=== PATIENT | female | born 1975 | race African-American/Black ===

== ENCOUNTER 2023-02-22 08:00 | Outpatient (CLI) | payer MEDICAID ==
[~2023-02-22] VITALS: Ht 167.6 cm; Wt 75.3 kg
== END 2023-02-22 15:00 | disposition home or self-care (01) ==
LOC: SLB 08:00 → EDSTATUS 02-28 07:30
PROVIDERS: ATTEND Obstetrics & Gynecology
DX: Z01.812 Encounter for preprocedural laboratory examination (principal); D25.1 Intramural leiomyoma of uterus
CPT/HCPCS: 87081

== ENCOUNTER 2023-04-06 05:30 | Inpatient (IN) | payer MEDICAID ==
[~2023-04-06] VITALS: Ht 167.6 cm; Wt 75.3 kg
[2023-04-06] MEDS ORDERED: BUPIVACAINE LIPOSOME/PF 266 MG/20 ML VIAL INFIL ONE (07:13)
[2023-04-06] MEDS ORDERED: LR 1,000 ML IV.SOLN IV ONE (07:31)
[2023-04-06] MEDS ORDERED: SUGAMMADEX SODIUM 200 MG/2 ML VIAL IV ONE (07:31)
[2023-04-06] MEDS ORDERED: HYDROMORPHONE HCL IN 0.9% NACL 0.2 MG/ML DRIP IV ONE (07:31)
[2023-04-06] MEDS ORDERED: METOCLOPRAMIDE HCL 10 MG/10 ML UDC ONE (07:31)
[2023-04-06] MEDS ORDERED: fentaNYL CITRATE/PF 100 MCG/2 ML AMP ONE (07:31)
[2023-04-06] MEDS ORDERED: KETOROLAC TROMETHAMINE 30 MG VIAL ONE (07:31)
[2023-04-06] MEDS ORDERED: ROCURONIUM BROMIDE 10 MG/ML (ZEMURON) ONE (07:31)
[2023-04-06] MEDS ORDERED: MIDAZOLAM HCL/PF 2 MG/2 ML SYRINGE ONE (07:31)
[2023-04-06] MEDS ORDERED: ONDANSETRON HCL 4 MG/2 ML VIAL ONE (07:31)
[2023-04-06] MEDS ORDERED: ISOFLURANE 15 MIN GAS INH ONE (07:31)
[2023-04-06] MEDS ORDERED: PROPOFOL 200MG/ 20ML VIAL (DIPRIVAN) IV ONE (07:31)
[2023-04-06] MEDS ORDERED: BUPIVACAINE /PF 0.25% 30 ML VIAL INJ ONE (07:31)
[2023-04-06] MEDS ORDERED: HYDROmorphone 2 MG/ML VIAL IVP PRN ×2 (07:45→08:00)
[2023-04-06] MEDS ORDERED: OXYCODONE/ACETAMINOPHEN 5-325 TABLET PO PRN (07:45)
[2023-04-06] MEDS ORDERED: BISACODYL 10 MG/SUPPOSITORY RC PRN (07:45)
[2023-04-06] MEDS ORDERED: IBUPROFEN 800 MG TABLET PO PRN (07:45)
[2023-04-06] MEDS ORDERED: KETOROLAC TROMETHAMINE 30 MG VIAL IVP PRN (07:45)
[2023-04-06] MEDS ORDERED: SIMETHICONE 80 MG TAB.CHEW PO PRN (07:45)
[2023-04-06] MEDS ORDERED: HYDROmorphone 1 MG/ML INJ. CARTRIDGE IVP PRN ×2 (08:00)
[2023-04-06] MEDS ORDERED: NALOXONE HCL 0.4 MG/ML AMP (NARCAN) IVP PRN ×2 (08:00)
[2023-04-06] MEDS ORDERED: ONDANSETRON HCL 4 MG/2 ML VIAL IVP PRN ×2 (08:00→16:30)
[2023-04-06] MEDS ORDERED: HYDROmorphone 1 MG/ML INJ. CARTRIDGE ONE (09:20)
[2023-04-06 10:30] VITALS: BP_SYST 141; PULSE 67; RESP 18; TEMP 97.1; O2SAT 100
--- NOTE | 2023-04-06 10:50 | NUR ---
ADMISSION NOTE Received patient from OR, alert and verbally responsive.Patient admitted with diagnosis of supracervical hysterectomy. Vital signs taken,Patient is awake, alert, oriented x 4.Patient oriented to hospital room, toileting, pain management and safety-teach back done. Bed alarm is on,side rails up for safety. Hob elevated 30 degrees for comfort. Adkins catheter in place draining yellow urine. Patient encouraged to use the call light anytime she need help or need the nurse. Personal belongings and Call light within reach.
[2023-04-06 11:00] VITALS: BP_SYST 141; PULSE 66; RESP 16; TEMP 97; O2SAT 98
[2023-04-06] MEDS ORDERED: ASCO500T20 PO (12:08)
[2023-04-06] MEDS ORDERED: VITD2000 PO (12:08)
[2023-04-06] MEDS ORDERED: CALC200T47 PO (12:08)
[2023-04-06] MEDS ORDERED: FERR236T3 PO (12:08)
[2023-04-06] MEDS ORDERED: HYDR12.585 PO (12:08)
[2023-04-06] MEDS ORDERED: [UNRECOGNIZED DRUG - CODE] PO (12:10)
[2023-04-06] MEDS ORDERED: OMEG10006 PO (12:10)
[2023-04-06] MEDS ORDERED: ELDE350C PO (12:10)
[2023-04-06] MEDS: DOCUSATE SODIUM 100 MG CAPSULE PO SCH ×2 (12:29→21:18)
[2023-04-06] MEDS: LR 1,000 ML IV SCH ×3 (12:34→21:19)
[2023-04-06 16:00] VITALS: BP_SYST 152; PULSE 70; RESP 18; TEMP 97; O2SAT 99
--- NOTE | 2023-04-06 16:23 | NUR ---
OB GYNE PAGED: SPOKE WTIH DR BASS FOR RE:PATIENT C/O NAUSEA/VOMITING. WITH ORDERS GIVE ZOFRAN 4MG IVP EVERY 4HRS NEEDED.
--- NOTE | 2023-04-06 16:40 | NUR ---
ROUNDING NOTES Pt complained of nausea and vomiting. Notified MD, New order to give Zofran IV noted and carried out. Medication effective. Notified MD to reconcile pt home medication. MD stated pt is still here today and not going home yet. Fall precaution maintained. Call light in reach.
--- NOTE | 2023-04-06 18:47 | NUR ---
CLOSING NOTES Pt. resting comfortable in bed, no complain of nausea at this time. IV on the right hand in place, no redness or swelling noted. Adkins catheter in place draining clear yellow urine. Out put [id number] ml. Fall precaution maintained. Bed alarm on, side rails up for safety.call light within reach.
--- NOTE | 2023-04-06 20:00 | NUR ---
OPENING NOTES PATIENT IS LYING IN BED AXIO 4 WITH NO S/S OF DISTRESS OR DISCOMFORT. BREATHING IS EQUAL AND UNLABORED ON RA.VSS. IVF RUNNING. CATHETER IN PLACE DRAINING YELLOW URINE. BED AT LOWEST POSITION AND LOCKED. BED ALARM ON AND CALL LIGHT WITH IN REACH. WILL CONTINUE TO MONITOR.
[2023-04-06] MEDS ORDERED: TEMAZEPAM 15 MG CAPSULE PO PRN (21:00)
[2023-04-06 22:21] VITALS: BP_SYST 136; PULSE 80; RESP 16; TEMP 97.5; O2SAT 100
[2023-04-06 23:42] VITALS: O2SAT 100
--- NOTE | 2023-04-07 03:00 | NUR ---
ROUNDS PATIENT IS ASLEEP IN BED WITH NO S/S OF DISCOMFORT. BREATHING IS EQUAL AND UNLABORED ON RA. IVF RUNNING. CATHETER INTACT DRAINING YELLOW URINE. BED IS LOWEST POSITION AND LOCKED. BED ALARM ON AND CALL LIGHT WITH IN REACH,
[2023-04-07] MEDS: LR 1,000 ML IV SCH ×3 (06:21→23:45)
--- NOTE | 2023-04-07 06:36 | NUR ---
CLOSING NOTES PATIENT IS SITTING ON THE SIDE OF THE BED AXO 4 WITH NO S/S/ OF DISTRESS OR DISCOMFORT. BREATHING IS EQUAL AND UNLABORED ON RA. IVF RUNNING. CATHETER INTACT DRAINING WITH YELLOW URINE. PATIENT IS STABLE. ALL NEEDS WERE MET AT THIS TIME. SAFETY CHECKS DONE AND CALL LIGHT WITHIN REACH.
[2023-04-07 06:55] LABS: BASOPHILS # (AUTO) 0.1 K/uL (0.0-0.2); BASOPHILS % (AUTO) 0.7 % (0.0-2.0); EOSINOPHILS # (AUTO) 0.1 K/uL (0.0-0.4); EOSINOPHILS % (AUTO) 0.7 % (0.0-4.0); HEMATOCRIT 30.1 % (36-48); HEMOGLOBIN 9.7 g/dL (12.0-16.0); LYMPHOCYTES # (AUTO) 1.9 K/uL (1.0-5.5); LYMPHOCYTES % (AUTO) 15.3 % (20.5-51.5); MEAN CORPUSCULAR HEMOGLOBIN 29 pg (27-31); MEAN CORPUSCULAR HGB CONC 32 % (32-36); MEAN CORPUSCULAR VOLUME 91 fL (79.0-98.0); MONOCYTES # (AUTO) 0.9 K/uL (0.0-1.0); MONOCYTES % (AUTO) 7.4 % (1.7-9.3); NEUTROPHILS # (AUTO) 9.4 K/uL (1.8-7.7); NEUTROPHILS % (AUTO) 75.9 % (40.0-70.0); PLATELET COUNT (AUTO) 379 K/uL (130-430); RED BLOOD CELL COUNT(AUTO) 3.32 MIL/uL (4.2-6.2); WHITE BLOOD COUNT (AUTO) 12.4 K/uL (4.8-10.8)
[2023-04-07 08:00] VITALS: BP_SYST 155; PULSE 75; RESP 17; TEMP 97.7; O2SAT 100; O2SAT 99
--- NOTE | 2023-04-07 08:00 | NUR ---
Opening note: Patient AOx4. Patient is in bed resting. Patient breathing non labored and even on room air. IVF running as ordered. IV site Patent on RT hand. No signs of infiltration or edema. Patient denies any SOB or acute distress. Patient c/o mild abdominal pain, provided ice packs and will provide pain medication as indicated. Abdominal dressing remains cleaned and dry. Bed locked, set at lowest position, and call light within reach. Will continue to monitor.
[2023-04-07] MEDS: DOCUSATE SODIUM 100 MG CAPSULE PO SCH ×2 (08:48→21:11)
--- NOTE | 2023-04-07 08:55 | NUR ---
Remove escalona As indicated escalona removed. Patient tolerated well and will continue to monitor.
--- NOTE | 2023-04-07 09:35 | NUR ---
NOTES; PT AMBULATED TO BATHROOM AND VOIDED. PT TOLERATED WELL
[2023-04-07 10:55] VITALS: BP_SYST 127; PULSE 80; RESP 18; TEMP 97.2; O2SAT 100
--- NOTE | 2023-04-07 11:05 | NUR ---
NOTES; PT RESTING IN BED COMFORTABLY, IVF RUNNING ORDERED. IV SITE REMAIN INTACT AND PATENT. NO IV RELATED INFECTION NOTED. BED IS LOCKED AND AT LOW POSITION. CALL LIGHT WITHIN REACH. ENCOURAGED PT TO USE CALL LIGHT FOR ANY ASSISTANCE. WILL CONT TO MONITOR
--- NOTE | 2023-04-07 13:30 | NUR ---
NOTES; PT AMBULATED TO BATHROOM AND VOIDED. PT TOLERATED WELL
--- NOTE | 2023-04-07 15:45 | NUR ---
Rounding notes: Checked on patient, resting watching tv. Able to ambulate to void. Denies any pain or SOB. Call light within reach, bed set at lowest position and locked. Educated patient on proper becca care. Will continue to monitor.
[2023-04-07 15:48] VITALS: BP_SYST 125; PULSE 78; RESP 20; TEMP 97; O2SAT 100
--- NOTE | 2023-04-07 19:22 | NUR ---
Closing note: Patient resting in bed watching tv. IV patent, no signs of infiltration or edema. Denies any pain and SOB. Patient ambulating to void and has not had a BM, supp. was administered. Bed locked, set at lowest position, and call light within reach. Will endorse to [facility] shift nurse.
[2023-04-07 20:00] VITALS: BP_SYST 175; PULSE 75; RESP 20; TEMP 97.9; O2SAT 100
--- NOTE | 2023-04-07 20:00 | NUR ---
OPENING NOTES PATIENT IS SITTING ON THE EDGE OF THE BED AXO 4 WITH SEVERE PAIN IN ABDOMEN. PATIENT STATES THAT AFTER SHE ATE HER FOOD HER STOMACH STARTED FEELING PAIN. BREATHING IS EQUAL AND UNLABORED ON RA. IV WAS INFILTRATED, AND EDEMA WAS PRESENT. REMOVED IV FROM PATIENT. ADMINISTERED 2 OXYCODONE FOR SEVERE PAIN. PATIENT HAS BEEN AMBULATING AROUND THE ROOM. PATIENT WAS ABLE TO VOID BUT NO BOWEL MOVEMENT. PATIENT'S ABDOMEN IS FIRM. GAVE STOOL SOFTENER SCHEDULED. EDUCATED PATIENT ON CONTINUING TO AMBULATE WITH MY ASSIST. BED IS AT LOWEST POSITION AND LOCKED. BED ALARM ON AND CALL LIGHT WITH IN REACH. WILL CONTINUE TO MONITOR.
[2023-04-07] MEDS: OXYCODONE/ACETAMINOPHEN 5-325 TABLET PO PRN ×2 (20:29→21:03)
--- NOTE | 2023-04-07 23:33 | NUR ---
NOTES PATIENT HAS BEEN AMBULATING AROUND THE UNIT WITH MY ASSIST. PATIENT STATES PAIN PILL HAS NOT HELPED BUT WALKING AROUND IS EASING THE PAIN. PATIENT STILL HAS NOT HAS A BM OR PASSED GAS.
[2023-04-07 23:44] VITALS: O2SAT 100
[2023-04-08 00:43] VITALS: BP_SYST 150; PULSE 85; RESP 18; TEMP 97.8; O2SAT 100
--- NOTE | 2023-04-08 04:25 | NUR ---
ROUNDS PATIENT IS ASLEEP IN BED WITH NO S/S OF DISTRESS OR DISCOMFORT. BREATHING IS EQUAL AND UNLABORED ON RA. BED IS AT LOWEST POSITION AND LOCKED. BED ALARM ON AND CALL LIGHT WITH IN REACH. WILL CONTINUE TO MONITOR.
--- NOTE | 2023-04-08 06:48 | NUR ---
CLOSING NOTES PATIENT IS SITTING IN BED AXO 4 WITH NO S/S OF DISTRESS OR DISCOMFORT. BREATHING IS EQUAL AND UNLABORED ON RA. PATIENT'S PAIN LEVEL HAS GONE DOWN BUT STILL NO BM. PATIENT'S BLOOD PRESSURE IS STILL HIGH 162/75. PAGED SHELIA MATAMOROS.WAITING FOR CALL BACK. BED IS AT THE LOWEST POSITION AND LOCKED. CALL LIGHT WITHIN REACH.
[2023-04-08] MEDS: LR 1,000 ML IV SCH (07:45)
[2023-04-08 08:00] VITALS: BP_SYST 197; PULSE 74; RESP 16; TEMP 98.9; O2SAT 97
--- NOTE | 2023-04-08 08:00 | NUR ---
PT IS AWAKE ALERT ORIENTED X4, SITTING UP IN BED, NO C/O PAIN, DRESSING TO ABDOMEN IS DRY AND INTACT WITH BINDER ON. CALL LIGHT WITHIN REACH, INSTRUCTED TO CALL FOR ANY NEEDS
--- NOTE | 2023-04-08 08:10 | NUR ---
PT BP IS 192/97 ELEVATED, DR. BASS PAGED ABOUT HTN PT WAS ADMITTED ON 04/06/23 AND NO MED REC WAS DONE, PT STATES SHE TAKES HYDROCHLOROTHIAZIDE FOR HER HIGH BLOOD PRESSURE, PT SAYS SHE GAVE HER BOTTLE OF PILLS TO OUR PHARMACY, STATES SHE TOLD DR. BASS ABOUT HTN. THE ABOVE WAS DISCUSSED WITH THE CHARGE NURSE.
[2023-04-08] MEDS ORDERED: HYDROCHLOROTHIAZIDE 12.5 MG CAPSULE (HCTZ) PO ONE (08:30)
--- NOTE | 2023-04-08 08:42 | NUR ---
DR. BASS CALLED BACK GAVE PT 1 DOSE OF HYDROCHLOROTHIAZIDE, ATTHIS TIME PT BP ISSTILL ELEVATED 177/88.
[2023-04-08] MEDS: DOCUSATE SODIUM 100 MG CAPSULE PO SCH (08:45)
--- NOTE | 2023-04-08 09:30 | NUR ---
ELEVATED BLOOD PRESSURE PT BP IS 171/[address] BASS
--- NOTE | 2023-04-08 10:30 | NUR ---
REASSES BP PT BP IS 168/72 WILL CONTINUE TO MONITOR, PT INSTRUCTED TO CALL FOR ANY NEEDS
--- NOTE | 2023-04-08 11:30 | NUR ---
ACTIVITY PT UP WALKING IN ROOM AND HALLWAY, INSTRUCTED PT, TO REST IN ROOM UNTIL BP IS REASSESSED, PT INSTRUCTED AT REST AND KEEP THE ROOM CALM AND QUIET..
[2023-04-08 12:00] VITALS: BP_SYST 158; PULSE 75; RESP 16; TEMP 97.3; O2SAT 98
[2023-04-08 13:39] VITALS: BP_SYST 158; PULSE 76; RESP 15; TEMP 96.7; O2SAT 99
--- NOTE | 2023-04-08 14:00 | NUR ---
DISCHARGE HOME PT BP IS 159/ 78 PT HAS NO CO PAIN, PT BEING DISCHARGED HOME, GIVEN DISCHARGE PACKET, IV REMOVED Addendum: 04/08/23 at 1514 by Aysha Nguyen LVN EDUCATED PATIENT AND GAVE HER EASY TO READ INSTRUCTIONS ON HOW TO CARE FOR ABDOMINAL INCISION.
[2023-04-08 15:19] VITALS: O2SAT 99
== END 2023-04-08 14:10 | disposition home or self-care (01) | DRG 519 ==
LOC: SMU 05:30
PROVIDERS: ADMIT Obstetrics & Gynecology; ATTEND Obstetrics & Gynecology
PROC: 0UB00ZZ Excision of Right Ovary, Open Approach (ICD-10-PCS; 2023-04-06)
PROC: 0UB50ZZ Excision of Right Fallopian Tube, Open Approach (ICD-10-PCS; 2023-04-06)
PROC: 0UT90ZL Resection of Uterus, Supracervical, Open Approach (ICD-10-PCS; principal; 2023-04-06 07:31)
DX: D25.1 Intramural leiomyoma of uterus (principal); N92.0 Excessive and frequent menstruation with regular cycle
CPT/HCPCS: 36415; 84703; 85025; 87081; 88307; C9290; J1170; J1885; J2405; J2704; J3010; J3465; J3490; J7120; J8597